=== PATIENT | male | born 1995 | race Hispanic/Latino ===

== ENCOUNTER 2017-11-22 06:57 | Outpatient (CLI) | payer BC ==
--- NOTE | 2017-11-22 07:40 | ULT ---
RIGHT UPPER QUADRANT ULTRASOUND: HISTORY: A 22-year-old male with elevated LFTs. FINDINGS: Liver echogenicity is very coarse and echogenic, evidence for fatty liver with some areas of fatty sp aring. No evidence of gallstones, wall thickening, edema, or pericholecystic fluid. There appears t o be some very minimal dependent sludge. NO evidence of gallstones. Common bile duct 0.4 cm. Visua lized pancreas and right kidney are unremarkable. IMPRESSION: Severe coarse liver increased echogenicity with fatty sparing, evidence for fatty liver. Possible mi ld sludge within the gallbladder, but no evidence for gallstones or wall thickening, edema, or perich olecystic fluid or ductal dilatation or other acute process. POS: OFF
== END 2017-11-22 06:58 | disposition home or self-care (01) ==
LOC: SCSULT 06:57
PROVIDERS: ATTEND Family Medicine
DX: R74.8 Abnormal levels of other serum enzymes (principal); K76.0 Fatty (change of) liver, not elsewhere classified
CPT/HCPCS: 76705